=== PATIENT | male | born 1990 | race Caucasian/White ===

== ENCOUNTER → 2016-11-22 | Outpatient (CLI) | payer BC ==
[~2016-11-22] MED LIST: FEXO1TAB46 PO; GUAI1TAB75 PO
--- NOTE | 2016-11-22 08:36 | DIAGNOSTIC IMAGING REPORT ---
ABDOMINAL ULTRASOUND, RIGHT LOWER QUADRANT HISTORY: Pain LOWER ABD Pain, right GROIN PAIN. COMPARISON: None. FINDINGS: No evidence for right inguinal hernia by ultrasound criteria IMPRESSION: No significant abnormality identified within the within the right lower quadrant. Electronically signed by: Giovani Boateng M.D. 11/22/2016 8:34 AM Dictated Date/Time: 11/22/2016 8:32 AM
== END | disposition home or self-care (01) ==
LOC: C.ULTR 07:50
PROVIDERS: ATTEND Family Medicine
DX: R10.30 Lower abdominal pain, unspecified (principal)

== ENCOUNTER → 2017-01-19 | Outpatient (CLI) | payer BC | END | disposition home or self-care (01) | LOC: C.RDSM 10:55 | PROVIDERS: ATTEND Family Medicine Sports Medicine | DX: R07.81 Pleurodynia (principal) ==